=== PATIENT | female | born 1990 | race Caucasian/White ===

== ENCOUNTER 2017-12-17 04:04 | Inpatient (IN) | END 2017-12-21 14:45 | disposition home or self-care (01) | DRG 418 ==

== ENCOUNTER 2019-02-10 01:30 | Emergency (ER) | payer BC ==
[~2019-02-10] VITALS: Ht 167.6 cm; Wt 82.8 kg
[~2019-02-10 01:30] MED LIST: ALBU2.5V3 NEB; HYDR-3601 PO; ONDA4TAB8 PO
[2019-02-10 01:33] VITALS: BP 144/84; PULSE 95; RESP 18; Ht 167.6 cm; Wt 82.8 kg
[2019-02-10] MEDS ORDERED: ACETAMINOPHEN 325 MG TAB PO STA (02:40)
[2019-02-10] MEDS ORDERED: ACET500C5 PO (04:26)
--- NOTE | 2019-02-10 04:37 | ERD ---
ER Documentation Chief Complaint Chief Complaint abdominal pain/vaginal spotting x 1 day, states 6 weeks HPI This is a 28-year-old G5, female at approximately 6 weeks gestation presents to the ED complaining of right lower pelvic pain and vaginal spotting x1 day. Patient states symptoms started after having sexual intercourse today. She states pain on her left pelvic area is pulsating. She denies any urinary symptoms. Denies any back pain. Denies any fevers or chills. Denies any nausea or vomiting. Her last menstrual cycle was January 02, 2019. She states she has an appointment with her [facility] next week. ROS All systems reviewed and are negative except as per history of present illness. Medications Home Meds Active Scripts Acetaminophen* (Tylophen*) 500 Mg Capsule, 1 CAP PO Q6H PRN for PAIN AND OR ELEVATED TEMP, #20 CAP Prov:MARTIN YI PA-C 02/10/19 Ondansetron Hcl* (Zofran*) 4 Mg Tablet, 4 MG PO Q6H PRN for NAUSEA AND OR VOMITING, #30 TAB Prov:TEJAS RIZZO V. RAMP MANAGER 12/21/17 Hydrocodone Bit-Acetaminophen (Hydrocodone Bit-APAP) 5-325MG Tablet, 1 TAB PO Q4H PRN for PAIN LEVEL 4-6, #30 TAB Prov:TEJAS RIZZO V. RAMP MANAGER 12/21/17 Reported Medications Albuterol Sulfate* (Albuterol Sulfate* Neb) 0.083%-3 Ml Neb, 1.25 MG NEB Q3H PRN for WHEEZING AND SOB, #30 VIAL 05/09/16 Allergies Allergies: Coded Allergies: shellfish derived (Verified Allergy, Severe, HIVES, 12/17/17) shrimp (Verified Allergy, Severe, HIVES, 12/17/17) No Known Drug Allergies (Verified Allergy, Unknown, 12/17/17) PMhx/Soc History of Surgery: No Anesthesia Reaction: No Hx Neurological Disorder: No Hx Respiratory Disorders: Yes (ASTHMA) Hx Cardiac Disorders: No Hx Psychiatric Problems: No Hx Miscellaneous Medical Probl: No Hx Alcohol Use: No Hx Substance Use: No Hx Tobacco Use: No Smoking Status: Never smoker Physical Exam Vitals Vital Signs Date Temp Pulse Resp B/P (MAP) Pulse Ox O2 O2 Flow FiO2 Time Delivery Rate 02/10/19 98.6 95 18 144/84 100 01:33 (104) Physical Exam Const: No acute distress Head: Atraumatic Eyes: Normal Conjunctiva ENT: Normal External Ears, Nose and Mouth. Neck: Full range of motion. No meningismus. Resp: Clear to auscultation bilaterally Cardio: Regular rate and rhythm, no murmurs Abd: Soft,+ right lower pelvic mild tenderness palpation. Negative McBurney's. Negative Jones's., non distended. Normal bowel sounds Skin: No petechiae or rashes Back: No midline or flank tenderness Ext: No cyanosis, or edema Neur: Awake and alert Psych: Normal Mood and Affect Result Diagram: 02/10/19 0247 Results 24 hrs Laboratory Tests Test 02/10/19 02:29 02/10/19 02:47 POC Beta HCG, Qualitative POSITIVE White Blood Count 11.6 10^3/ul Red Blood Count 4.37 10^6/ul Hemoglobin 13.1 g/dl Hematocrit 39.8 % Mean Corpuscular Volume 91.1 fl Mean Corpuscular Hemoglobin 30.0 pg Mean Corpuscular Hemoglobin Concent 32.9 g/dl Red Cell Distribution Width 12.5 % Platelet Count 272 10^3/UL Mean Platelet Volume 10.4 fl Immature Granulocytes % 0.300 % Neutrophils % 60.4 % Lymphocytes % 30.0 % Monocytes % 6.0 % Eosinophils % 3.0 % Basophils % 0.3 % Nucleated Red Blood Cells % 0.0 /100WBC Immature Granulocytes # 0.040 10^3/ul Neutrophils # 7.0 10^3/ul Lymphocytes # 3.5 10^3/ul Monocytes # 0.7 10^3/ul Eosinophils # 0.4 10^3/ul Basophils # 0.0 10^3/ul Nucleated Red Blood Cells # 0.0 10^3/ul Urine Color STRAW Urine Clarity CLEAR Urine pH 6.0 Urine Specific Sidney 1.010 Urine Ketones NEGATIVE mg/dL Urine Nitrite NEGATIVE mg/dL Urine Bilirubin NEGATIVE mg/dL Urine Urobilinogen NEGATIVE mg/dL Urine Leukocyte Esterase 1+ Nisha/ul Urine Microscopic RBC 1 /HPF Urine Microscopic WBC 1 /HPF Urine Squamous Epithelial Cells FEW /HPF Urine Bacteria FEW /HPF Urine Hemoglobin 2+ mg/dL Urine Glucose NEGATIVE mg/dL Urine Total Protein NEGATIVE mg/dl Beta HCG, Quantitative 2873.9 mIU/ml Current Medications Medications Dose Sig/Hosea Start Time Status Last (Trade) Ordered Route PRN Stop Time Admin Dose Reason Admin 650 mg ONCE STAT 02/10/19 DC 02/10/19 Acetaminophen PO 02:40 02:50 (Tylenol 02/10/19 02:42 Tab) Procedures/MDM LABS & DIAGNOSTIC IMAGING: CBC: + WBC of 11, likely stress reaction. beta hc Urine: no e/o acute infection or hematuria Rh status: positive PROCEDURE: US OB < 14 weeks. CLINICAL INDICATION: Vaginal bleeding TECHNIQUE: Multiple sonographic images of the pelvis were obtained. The images were reviewed on a PACS workstation. COMPARISON: None FINDINGS: There is a 5 mm cystic structure within the endometrium which demonstrates features compatible with a gestational sac, size corresponding to an estimated age of 5 weeks 0 days. No visible pole or yolk sac. The right ovary measures 3.8 x 2.9 x 2.7 cm and the left ovary measures 3.8 x 2.1 x 2.4 cm. A 1.8 cm dominant follicle is identified within the right ovary. No additional adnexal lesions are identified. Vascular flow to both ovaries is demonstrated with Doppler imaging. There is a small amount of free fluid in the pelvis. IMPRESSION: 1. Cystic 5 mm structure within the endometrium favored to represent a gestational sac, size corresponding to an estimated age of 5 weeks 0 days. ROXANA 10/13/2019. Viability cannot be confirmed due to early age of the . 2. Dominant 1.8 cm follicle within the right ovary, possible corpus luteum. Bilateral ovaries otherwise unremarkable. 3. Trace pelvic free fluid. ED COURSE: The patient was given Tylenol The medication was well tolerated and the patient had market improvement in symptoms. The patient remained stable throughout ED course. MEDICAL DECISION MAKIN-year-old G5, female presents with vaginal bleeding and pelvic pain in first trimester. Labs without any signs of infection, dehydration or significant anemia. Her serum HCG was 2873. US showed a gestational sac and right ovarian cyst. No findings to suggest ectopic . Her Rh was positive and she does not require Rhogam. Her vital signs are normal. Discussed with pt regarding differential diagnosis of early , threatened , missed and complete AB. Pain is likely related to her ovarian cyst. She felt much better after Tylenol. She was given a copy of her results and told to follow up with pharmacovigilance specialist in 48 hours for repeat HCG and US. Strict return precautions given. PRESCRIPTIONS: Tylenol SPECIALIST FOLLOW UP RECOMMENDED: OBGYN Patient has been advised to follow up with primary care in 1-2 days. Departure Diagnosis: Primary Impression: Threatened in first trimester Additional Impression: Ovarian follicular cyst Condition: Stable Patient Instructions: What Are Ovarian Cysts?, Bleeding During Early Referrals: [facility] [place] [address] [facility] [address] [place] [address]ABUSLEME [facility] [address] [place] [address] [address] [place] [address] [place] [address] [address]IRANDA, [facility] [address] [facility] [address] [facility] [address] [address] [facility] [address] [place] [address] [facility] [address] [place] [address] [address] [facility] [id number] - CLARISSA SMALLS [address] [facility]. [address], [facility] [address] [address] MELO, [place] [address] [facility]. [address], [place] [address] [address] OSCAR, [facility] [address] [place], [place] [id number] Additional Instructions: He must follow-up with the [facility] sometime this week. He can return here for any worsening bleeding or pain. Return here for any new or worsening symptoms. MARTIN YI PA-C Feb 10, 2019 04:37
== END 2019-02-10 04:37 | disposition home or self-care (01) ==
LOC: FTE 01:30
DX: O20.0 Threatened abortion (principal); N83.01 Follicular cyst of right ovary; O34.81 Maternal care for other abnormalities of pelvic organs, first trimester; O99.511 Diseases of the respiratory system complicating pregnancy, first trimester; J45.909 Unspecified asthma, uncomplicated; Z3A.01 Less than 8 weeks gestation of pregnancy
CPT/HCPCS: 36415; 76801; 76817; 81001; 81025; 84702; 85025; 86900; 86901; Z7502; Z7610

== ENCOUNTER 2019-06-15 13:57 | Outpatient (CLI) | payer BC ==
[~2019-06-15] VITALS: Ht 167.6 cm; Wt 84.9 kg
[~2019-06-15 13:57] MED LIST changes: +ACET500C5 PO; +FOLI0.4T2 PO; +PNV11TAB PO
[2019-06-15 14:28] VITALS: BP 117/58; PULSE 69; RESP 19; Ht 167.6 cm; Wt 84.9 kg
== END 2019-06-15 17:05 | disposition home or self-care (01) ==
LOC: OBT 13:57 → L-D 14:00 → OBT 17:05
PROVIDERS: ATTEND Obstetrics & Gynecology
DX: O26.892 Other specified pregnancy related conditions, second trimester (principal); Z3A.23 23 weeks gestation of pregnancy; R10.2 Pelvic and perineal pain
CPT/HCPCS: 76815; 76817; 81001; 85025; Z7500; 81003; G0463